=== PATIENT | male | born 1990 | race Caucasian/White ===

== ENCOUNTER 2023-09-13 08:42 | Outpatient (RCR) | payer OTHER, SELFPAY | END 2023-10-10 17:15 | disposition home or self-care (01) | LOC: PT 08:42 | PROVIDERS: PCP Family Medicine; Visit Provider Family Medicine | DX: M54.50 Low back pain, unspecified (principal); G89.29 Other chronic pain | CPT/HCPCS: 97010; 97014; 97110; 97140; 97162 ==